=== PATIENT | male | born 1995 | race Two or more races ===

== ENCOUNTER 2021-09-26 15:20 | Emergency (ER) | payer OTHER ==
[~2021-09-26] VITALS: Ht 175.3 cm; Wt 68.0 kg
[2021-09-26 15:20] VITALS: BP 130/87
--- NOTE | 2021-09-26 15:48 | PHYS DOC ---
Past History Past Medical History: No Pertinent History (TONY GOULD APRN) Past Surgical History: No Surgical History (TONY GOULD APRN) Smoking: Non-smoker Alcohol Use: None Drug Use: None (TONY GOULD APRN) General Adult EDM: Chief Complaint: ANKLE PROBLEM HPI: HPI: Patient is a 26-year-old male that presents today with right ankle pain, patient states just prior to arrival patient states he was playing sand volleyball and went jumped and came down and twisted his ankle, he has had increased pain on the lateral aspect of the ankle. Patient states it hurts to walk. (TONY GOULD APRN) Review of Systems: Review of Systems: Constitutional: Denies fever or chills Eyes: Denies change in visual acuity HENT: Denies nasal congestion or sore throat Respiratory: Denies cough or shortness of breath Cardiovascular: Denies chest pain or edema GI: Denies abdominal pain, nausea, vomiting, bloody stools or diarrhea : Denies dysuria Musculoskeletal: Right ankle pain Integument: Denies rash Neurologic: Denies headache, focal weakness or sensory changes Endocrine: Denies polyuria or polydipsia Lymphatic: Denies swollen glands Psychiatric: Denies depression or anxiety (TONY GOULD APRN) Physical Exam: PE: Constitutional: Well developed, well nourished, no acute distress, non-toxic appearance. [] HENT: Normocephalic, atraumatic, bilateral external ears normal, oropharynx moist, no oral exudates, nose normal. [] Eyes: PERRLA, EOMI, conjunctiva normal, no discharge. [] Neck: Normal range of motion, no tenderness, supple, no stridor. [] Cardiovascular:Heart rate regular rhythm, no murmur [] Lungs & Thorax: Bilateral breath sounds clear to auscultation [] Abdomen: Bowel sounds normal, soft, no tenderness, no masses, no pulsatile masses. [] Skin: Warm, dry, no erythema, no rash. [] Back: No tenderness, no CVA tenderness. [] Extremities: Right ankle swelling noted on the lateral aspect of the ankle, pain with tenderness loaded, limited range of motion due to pain, neuro intact distal to the injury, dorsalis pedis pulse 2+ Neurologic: Alert and oriented X 3, normal motor function, normal sensory function, no focal deficits noted. [] Psychologic: Affect normal, judgement normal, mood normal. [] (TONY GOULD APRN) Current Patient Data: Vital Signs: Vital Signs Date Time Temp Pulse Resp B/P (MAP) Pulse Ox O2 Delivery O2 Flow Rate FiO2 09/26/21 15:20 97.7 95 16 130/87 (101) 98 Room Air (TONY GOULD APRN) EKG: EKG: [] (TONY GOULD APRN) Radiology/Procedures: Radiology/Procedures: REASON: pain PROCEDURE: ANKLE RIGHT 3V XR EXAM OF ANKLE_RIGHT 3VIEWS dated 09/26/2021 4:05 PM. History: Reason: pain / Spl. Instructions: / History: Comparison: None. Findings: No fracture or dislocation is seen. Joint spaces are not narrowed. There is suggestion of an effusion at the tibiotalar joint. Impression: 1. No acute bony abnormality. Joint effusion. Electronically signed by: Antonio Moser Jr., MD (09/26/2021 4:14 PM) [facility][] (TONY GOULD APRN) Heart Score: C/O Chest Pain: N/A Risk Factors: Risk Factors: DM, Current or recent (<one month) smoker, HTN, HLP, family history of CAD, obesity. Risk Scores: Score 0 - 3: 2.5% MACE over next 6 weeks - Discharge Home Score 4 - 6: 20.3% MACE over next 6 weeks - Admit for Clinical Observation Score 7 - 10: 72.7% MACE over next 6 weeks - Early Invasive Strategies (TONY GOULD APRN) Course & Med Decision Making: Course & Med Decision Making Pertinent Labs and Imaging studies reviewed. (See chart for details) 1630 reviewed radiology results with patient, informed patient no fracture was visualized, but does not mean that there is not any tendon or ligamental injuries. Will place patient with an Adam wrap Aircast and crutches nonweightbearing to the right foot until followed up with his primary care physician. Ice 20 minutes on 3-4 times daily, ibuprofen as needed for pain, patient will also be given time off work for the next 3 to 5 days until he is followed up with his primary care. Patient verbalizes understanding of discharge instruction and is agreeable to the outpatient plan of care (TONY GOULD APRN) Course & Med Decision Making I was the Attending physician on the above date of service of this patient. This patient was evaluated, examined, treated, and dispositioned from the emergency department by the mid-level practitioner. Although I was working at the time , no assistance was requested. Electronically signed, Amira Esteban DO (AMIRA ESTEBAN DO) Serena Disclaimer: Serena Disclaimer: This electronic medical record was generated, in whole or in part, using a voice recognition dictation system. (TONY GOULD APRN) Departure Departure: Impression: Primary Impression: Ankle sprain Qualified Codes: S93.401A - Sprain of unspecified ligament of right ankle, initial encounter Disposition: HOME / SELF CARE / HOMELESS Condition: STABLE Referrals: PCP,NO (PCP) ENDY SOLANO II, MD Patient Instructions: Ankle Sprain, Crutch Use, Knee Wraps (Elastic Bandage) and RICE Additional Instructions: Use crutches, nonweightbearing for the next 48 hours then light toe-touch after that as tolerated Adam wrap and Aircast to right ankle for support and comfort Ibuprofen as labeled directed as needed for pain Follow-up with your primary care physician in the next 3 to 5 days for further management of your ankle sprain Work excuse given for the next 3 to 5 days. TONY GOULD APRN Sep 26, 2021 15:48 AMIRA ESTEBAN DO Oct 01, 2021 07:03
--- NOTE | 2021-09-26 16:16 | RAD ---
XR EXAM OF ANKLE_RIGHT 3VIEWS dated 09/26/2021 4:05 PM. History: Reason: pain / Spl. Instructions: / History: Comparison: None. Findings: No fracture or dislocation is seen. Joint spaces are not narrowed. There is suggestion of an effusion at the tibiotalar joint. Impression: 1. No acute bony abnormality. Joint effusion. Electronically signed by: Antonio Moser Jr., MD (09/26/2021 4:14 PM) [facility]
== END 2021-09-26 16:57 | disposition home or self-care (01) ==
LOC: ER 15:20
DX: S93.401A Sprain of unspecified ligament of right ankle, initial encounter (principal); X50.9XXA Other and unspecified overexertion or strenuous movements or postures, initial encounter; Y93.68 Activity, volleyball (beach) (court); Y92.89 Other specified places as the place of occurrence of the external cause; Y99.8 Other external cause status
CPT/HCPCS: 29515; 73610; 99283